=== PATIENT | female | born 1985 | race Caucasian/White ===

== ENCOUNTER 2016-05-29 07:23 | Emergency (ER) | payer OTHER ==
[~2016-05-29] VITALS: Ht 165.1 cm; Wt 60.0 kg
[~2016-05-29 07:23] MED LIST: CYCL5TAB PO
[2016-05-29 07:24] VITALS: BP 123/77; PULSE 88; RESP 20; TEMP 97.8; O2SAT 100
[2016-05-29] MEDS ORDERED: SODIUM CHLOR 0.9% 1000 ML INJ 1,000 ML IV SCH (07:51)
[2016-05-29 07:53] VITALS: O2SAT 100
[2016-05-29] MEDS ORDERED: SODIUM CHLORIDE 0.9% FLUSH 5 ML FLUSH IVF PRN (08:00)
[2016-05-29] MEDS ORDERED: HYDROmorphone HCL PF 1 MG/ML VIAL IVS ONE (08:00)
[2016-05-29] MEDS ORDERED: ONDANSETRON HCL 4 MG/2 ML VIAL IVP ONE (08:00)
--- NOTE | 2016-05-29 08:09 | PD ---
HPI Chief Complaint: Abdominal Pain Time Seen by Provider: 07:51 Travel History International Travel<30 days: No Contact w/Intl Traveler<30days: No Traveled to known affect area: No History of Present Illness HPI This a 30-year-old female is previously health, presents today with complaint of one-day history of severe abdominal pain. The patient states yesterday she thought she was experiencing some mild cramps however those subsided. Today she woke up with severe abdominal pain is unrelenting. The patient states she' s had pain in the past that was related to gas however this is much much more severe and unrelenting. There is no reported fevers, chills. There is no reported dysuria urgency or frequency. The patient denies any vaginal discharge or bleeding. She has had ovarian cysts in the past. PFSH Past Medical History Medical History: Denies Significant Hx Blood Disorders: No Anxiety: Yes Cancer: No Cardiovascular Problems: No Diminished Hearing: No Gestational Age in Weeks: 14 Genitourinary: No Immune Disorder: No Implanted Vascular Access Dvce: No Neurologic: No Psychiatric: Yes Reproductive: Yes Respiratory: No ?: Not LMP: 04/2016 Menopausal: No : 1 Para: 1 : 0 Past Surgical History Surgical History: No Previous Surgery Other Surgery: No Social History Alcohol Use: No Tobacco Use: No Substance Use: No Allergies-Medications (Allergen,Severity, Reaction): Coded Allergies: Contrast Media (Verified Allergy, Intermediate, Swelling, 05/29/16) Reported Meds & Prescriptions Reported Meds & Active Scripts Active Zofran Odt (Ondansetron Odt) 4 Mg Tab 4 Mg SL Q12HR PRN Lortab (Hydrocodone-Acetaminophen) 5-325 Mg Tab 1 Tab PO Q6H PRN Macrobid (Nitrofurantoin Monoh/Nitrofur Macro) 100 Mg Cap 100 Mg PO BID Review of Systems Except as stated in HPI: all other systems reviewed are Neg General / Constitutional: No: Fever, Chills Cardiovascular: No: Chest Pain or Discomfort, Palpitations Respiratory: No: Cough, Shortness of Breath Gastrointestinal: Positive: Nausea, Vomiting, Abdominal Pain (diffuse periumbilical and lower) Genitourinary: No: Dysuria, Discharge, Vaginal Bleeding Physical Exam Narrative GENERAL: Well-nourished, well-developed patient. SKIN: Warm and dry. HEAD: Normocephalic/atraumatic. EYES: No scleral icterus. No injection or drainage. NECK: Supple, trachea midline. CARDIOVASCULAR: Regular rate and rhythm without murmurs, gallops, or rubs. RESPIRATORY: Breath sounds equal bilaterally. No accessory muscle use. GASTROINTESTINAL: Abdomen soft, nondistended. She has subjective lower abdominal pain bilaterally. NEUROLOGICAL: Awake and alert. Cranial nerves II through XII intact. Motor grossly within normal limits. Five out of 5 muscle strength in all muscle groups. Normal speech. Data Data Last Documented VS Vital Signs Date Time Temp Pulse Resp B/P Pulse Ox O2 Delivery O2 Flow Rate FiO2 05/29/16 07:53 100 Room Air 05/29/16 07:44 16 05/29/16 07:24 97.8 88 123/77 Orders Complete Blood Count With Diff (05/29/16 07:51) Comprehensive Metabolic Panel (05/29/16 07:51) Lipase (05/29/16 07:51) Urinalysis - C+S If Indicated (05/29/16 07:51) Ct Abd/Pel W/O Iv Contrast (05/29/16 07:51) Iv Access Insert/Monitor (05/29/16 07:51) Ecg Monitoring (05/29/16 07:51) Oximetry (05/29/16 07:51) Ondansetron Inj (Zofran Inj) (05/29/16 08:00) Sodium Chlor 0.9% 1000 Ml Inj (Ns 1000 M (05/29/16 07:51) Sodium Chloride 0.9% Flush (Ns Flush) (05/29/16 08:00) Hydromorphone Pf Inj (Dilaudid Pf Inj) (05/29/16 08:00) Ed Urine Pregnancytest Poc (05/29/16 07:51) Oral Contrast - Adult (05/29/16 08:01) Diatrizoate Liq ( Gastroview Liq) (05/29/16 08:22) Morphine Inj (Morphine Inj) (05/29/16 09:15) Labs Laboratory Tests Test 05/29/16 08:05 White Blood Count 11.2 TH/MM3 Red Blood Count 4.76 MIL/MM3 Hemoglobin 13.3 GM/DL Hematocrit 39.9 % Mean Corpuscular Volume 83.9 FL Mean Corpuscular Hemoglobin 27.9 PG Mean Corpuscular Hemoglobin 33.2 % Concent Red Cell Distribution Width 13.8 % Platelet Count 146 TH/MM3 Mean Platelet Volume 9.4 FL Neutrophils (%) (Auto) 84.4 % Lymphocytes (%) (Auto) 9.3 % Monocytes (%) (Auto) 5.9 % Eosinophils (%) (Auto) 0.3 % Basophils (%) (Auto) 0.1 % Neutrophils # (Auto) 9.4 TH/MM3 Lymphocytes # (Auto) 1.0 TH/MM3 Monocytes # (Auto) 0.7 TH/MM3 Eosinophils # (Auto) 0.0 TH/MM3 Basophils # (Auto) 0.0 TH/MM3 CBC Comment DIFF FINAL Differential Comment Urine Color YELLOW Urine Turbidity HAZY Urine pH 5.5 Urine Specific [place] 1.021 Urine Protein NEG mg/dL Urine Glucose (UA) NEG mg/dL Urine Ketones NEG mg/dL Urine Occult Blood SMALL Urine Nitrite NEG Urine Bilirubin NEG Urine Urobilinogen LESS THAN 2.0 MG/DL Urine Leukocyte Esterase LARGE Urine RBC 3 /hpf Urine WBC 8 /hpf Urine Squamous Epithelial 3 /hpf Cells Urine Bacteria RARE /hpf Urine Hyaline Casts 1 /lpf Urine Mucus FEW /lpf Microscopic Urinalysis Comment CULT NOT INDICATED Sodium Level 141 MEQ/L Potassium Level 3.9 MEQ/L Chloride Level 108 MEQ/L Carbon Dioxide Level 25.4 MEQ/L Anion Gap 8 MEQ/L Blood Urea Nitrogen 12 MG/DL Creatinine 0.70 MG/DL Estimat Glomerular Filtration 99 ML/MIN Rate Random Glucose 92 MG/DL Calcium Level 8.7 MG/DL Total Bilirubin 0.4 MG/DL Aspartate Amino Transf 11 U/L (AST/SGOT) Alanine Aminotransferase 14 U/L (ALT/SGPT) Alkaline Phosphatase 44 U/L Total Protein 7.1 GM/DL Albumin 3.8 GM/DL Lipase 114 U/L [facility] Medical Decision Making Medical Screen Exam Complete: Yes Emergency Medical Condition: Yes Differential Diagnosis Appendicitis versus diverticulitis versus ruptured ovarian cyst Narrative Course 30-year-old female presents with severe abdominal pain. The patient has a history of previous gas pains however this is much more severe. Patient also has a history of ovarian cyst. She states it's more diffuse on her bilateral lower quadrants. On examination she has no rebound or guarding. CT scan of the and pelvis with oral contrast showed scant amount of free fluid in the pelvis. This could be physiologic however it could be outside sales representative of a ruptured cyst. I discussed findings with the patient and informed her that she has the findings that I think possibly could be secondary to a ruptured cyst. She will be given 2 doses of IV pain medication is much more comfortable. She is instructed to rest and have a bland diet and advance as tolerated. She is instructed return if she develops any worsening pain Diagnosis Primary Impression: Abdominal pain Additional Impression: possible ruptured ovarian cyst. Scripts Ondansetron Odt (Zofran Odt)4 Mg Tab4 Mg SL Q12HR PRN (Nausea/Vomiting) #20 TAB Ref 0 Prov:Pierre Telles MD 05/29/16 Hydrocodone-Acetaminophen (Lortab)5-325 Mg Tab1 Tab PO Q6H PRN (PAIN) #12 TAB Ref 0 Prov:Pierre Telles MD 05/29/16 Nitrofurantoin Monohydrate Macrocrystals (Macrobid)100 Mg [id number] Mg PO BID #6 CAP Ref 0 Prov:Pierre Telles MD 05/29/16 Pierre Telles MD May 29, 2016 08:09
[2016-05-29] MEDS ORDERED: DIATRIZOATE MEGLUM/DIATRIZOATE SOD 9 ML CUP ONE (08:22)
[2016-05-29 08:25] LABS: AUTOMATED NEUTROPHIL # 9.4 TH/MM3 (1.8-7.7); BASOPHIL % 0.1 % (0.0-2.0); EOSINOPHIL % 0.3 % (0.0-4.0); HEMATOCRIT 39.9 % (35.0-46.0); HEMO FLAGS DIFF FINAL; LYMPH % 9.3 % (9.0-44.0); MEAN CELL VOLUME 83.9 FL (80.0-100.0); MEAN CORPUSCULAR HEMOGLOBIN 27.9 PG (27.0-34.0); MEAN CORPUSCULAR HGB CONC 33.2 % (32.0-36.0); MONO % 5.9 % (0.0-8.0); NEUT % 84.4 % (16.0-70.0); PLATELET COUNT 146 TH/MM3 (150-450); RED BLOOD COUNT 4.76 MIL/MM3 (4.00-5.30); RED CELL DISTRIBUTION WIDTH 13.8 % (11.6-17.2); WHITE BLOOD COUNT 11.2 TH/MM3 (4.0-11.0)
[2016-05-29 08:39] LABS: BACTERIA, URINE RARE /hpf; BLOOD, URINE SMALL (NEG); COMMENT (UR) CULT NOT INDICATED; CULTURE IF INDICATED CULT NOT INDICATED; GLUCOSE,URINE NEG (NEG); HYALINE CAST, URINE 1 /lpf (RARE); KETONE, URINE NEG (NEG); MUCUS URINE FEW /lpf (OCC); NITRITE,URINE NEG (NEG); PH, URINE 5.5 (5.0-8.5); SQUAMOUS EPITHELIAL CELL URINE 3 /hpf (0-5); URINE COLOR YELLOW (YELLW/STRAW)
[2016-05-29 08:45] LABS: ALT (GPT) 14 U/L (10-53); ANION GAP 8 MEQ/L (5-15); AST (GOT) 11 U/L (15-37); BICARBONATE 25.4 MEQ/L (21.0-32.0); BLOOD UREA NITROGEN 12 MG/DL (7-18); CHLORIDE 108 MEQ/L (98-107); GLOMERULAR FILTRATION RATE 99 ML/MIN (>89); POTASSIUM 3.9 MEQ/L (3.5-5.1); SODIUM (NA) 141 MEQ/L (136-145)
[2016-05-29 08:47] LABS: ALKALINE PHOSPHATASE 44 U/L (45-117); TOTAL BILIRUBIN ADULT 0.4 MG/DL (0.2-1.0)
[2016-05-29] MEDS ORDERED: MORPHINE SULFATE 4 MG/ML INJ IV PUSH ONE (09:15)
--- NOTE | 2016-05-29 11:21 | RADRPT ---
EXAM DATE/TIME: 05/29/2016 10:04 [facility] COMPARISON: No previous studies available for comparison. INDICATIONS : Lower abdominal pain. Nausea and vomiting. ORAL CONTRAST: Partial prescribed oral contrast ingested. RADIATION DOSE: 9.96 CTDIvol (mGy) MEDICAL HISTORY : Ovarian cysts. SURGICAL HISTORY : None. ENCOUNTER: Initial ACUITY: 1 day PAIN SCALE: 5/10 LOCATION: Bilateral lower quadrant TECHNIQUE: Volumetric scanning of the abdomen and pelvis was performed. Using automated exposure control and ad justment of the mA and/or kV according to patient size, radiation dose was kept as low as reasonably achievable to obtain optimal diagnostic quality images. FINDINGS: LOWER LUNGS: The visualized lower lungs are clear. LIVER: Homogeneous density without lesion. There is no dilation of the biliary tree. No calcified gallston es. SPLEEN: Normal size without lesion. PANCREAS: Within normal limits. KIDNEYS: Normal in size and shape. There is no mass, stone, or hydronephrosis. ADRENAL GLANDS: Within normal limits. VASCULAR: There is no aortic aneurysm. BOWEL/MESENTERY: The stomach, small bowel, and colon demonstrate no acute abnormality. There is no free intraperitone al air. There is trace free fluid in the pelvis. The appendix is not visualized. Terminal ileum is no rmal. ABDOMINAL WALL: Within normal limits. RETROPERITONEUM: There is no lymphadenopathy. BLADDER: No wall thickening or mass. REPRODUCTIVE: Within normal limits. IUD is present. INGUINAL: There is no lymphadenopathy or hernia. MUSCULOSKELETAL: Hemangioma is present within the T12 vertebral body. Otherwise, no acute osseous abnormality is seen. CONCLUSION: 1. No abnormality is identified to explain the clinical symptoms. No acute finding is seen. 2. There is trace free fluid in the pelvis. This is nonspecific but may be physiologic. Luis Angel Chambers MD on May 29, 2016 at 11:12 Board Certified Radiologist. This report was verified electronically.
[2016-05-29] MEDS ORDERED: MACR100C2 PO (12:22)
[2016-05-29] MEDS ORDERED: HYDR-3533 PO (12:22)
[2016-05-29] MEDS ORDERED: ZOFR4TAB3 SL (12:22)
[2016-05-29 12:54] VITALS: BP 81/50
[2016-05-29 12:55] VITALS: BP 95/52; PULSE 72; RESP 16; O2SAT 100
== END 2016-05-29 13:02 | disposition home or self-care (01) ==
LOC: NEPC 07:23
DX: R10.9 Unspecified abdominal pain (principal)
CPT/HCPCS: 74176; 80053; 81001; 83690; 84703; 85025; 96361; 96374; 96375; 99284; J1170; J2270; J2405; J7030; Q9963

== ENCOUNTER 2016-05-30 10:57 | Observation (INO) | payer OTHER ==
[~2016-05-30] VITALS: Ht 165.1 cm; Wt 62.0 kg
[~2016-05-30 10:57] MED LIST changes: -CYCL5TAB PO; +HYDR-3533 PO; +LACTATED RINGER'S 1000 ML INJ 1,000 ML IV ONE; +MACR100C2 PO; +ONDANSETRON HCL 4 MG/2 ML VIAL IV PUSH ONE; +PHENYLEPH/NS 1000 MCG/10 ML SYR IV ONE; +PROPOFOL 200 MG/20 ML AMP IV ONE; +ZOFR4TAB3 SL; +ePHEDrine/NS 25 MG/5 ML SYR IV ONE
[2016-05-30 10:58] VITALS: BP 114/62; PULSE 122; RESP 16; TEMP 98.1; O2SAT 96
[2016-05-30] MEDS ORDERED: SODIUM CHLOR 0.9% 1000 ML INJ 1,000 ML IV SCH (11:12)
[2016-05-30] MEDS ORDERED: ONDANSETRON HCL 4 MG/2 ML VIAL IVP ONE (11:15)
[2016-05-30] MEDS ORDERED: KETOROLAC TROMETHAMINE 30 MG/ML (IVP) VIAL IVP ONE (11:15)
--- NOTE | 2016-05-30 11:20 | PD ---
HPI Chief Complaint: Abdominal Pain Time Seen by Provider: 11:15 Travel History International Travel<30 days: No Contact w/Intl Traveler<30days: No Traveled to known affect area: No History of Present Illness HPI 30-year-old female presents the emergency department with ongoing and worsening right lower quadrant tenderness. Patient was seen yesterday and workup with CT scan of the abdomen with question urinary tract infection as well as possible ovarian cyst. Patient states her pain has worsened and localized more to the right lower quadrant with rebound tenderness today. Patient is feeling overall more feverish and weak. Patient is nauseous but denies vomiting or diarrhea. Patient denies vaginal bleeding or symptoms. Patient has no medication allergies, but is allergic to IV contrast media. PFSH Past Medical History Blood Disorders: No Anxiety: Yes Cancer: No Cardiovascular Problems: No Diminished Hearing: No Gestational Age in Weeks: 14 Genitourinary: No Immune Disorder: No Implanted Vascular Access Dvce: No Neurologic: No Psychiatric: Yes Reproductive: Yes Respiratory: No ?: Not LMP: 05/06/16 Menopausal: No : 1 Para: 1 : 0 Past Surgical History Other Surgery: No Social History Alcohol Use: No Tobacco Use: No Substance Use: No Allergies-Medications (Allergen,Severity, Reaction): Coded Allergies: Contrast Media (Verified Allergy, Intermediate, Swelling, 05/30/16) Reported Meds & Prescriptions Reported Meds & Active Scripts Active Zofran Odt (Ondansetron Odt) 4 Mg Tab 4 Mg SL Q12HR PRN Lortab (Hydrocodone-Acetaminophen) 5-325 Mg Tab 1 Tab PO Q6H PRN Macrobid (Nitrofurantoin Monoh/Nitrofur Macro) 100 Mg Cap 100 Mg PO BID Review of Systems Except as stated in HPI: all other systems reviewed are Neg General / Constitutional: Positive: Chills, No: Fever Eyes: No: Visual changes HENT: No: Headaches Cardiovascular: No: Chest Pain or Discomfort Respiratory: No: Shortness of Breath Gastrointestinal: Positive: Nausea, Vomiting, Diarrhea, Abdominal Pain (right lower quadrant) Genitourinary: No: Dysuria Musculoskeletal: No: Pain Skin: No Rash Neurologic: No: Weakness Psychiatric: No: Depression Endocrine: No: Polydipsia Hematologic/Lymphatic: No: Easy Bruising Physical Exam Narrative GENERAL: Patient appears in mild to moderate distress. SKIN: Warm and dry. Normal color. Normal turgor. HEAD: Atraumatic. Normocephalic. EYES: Pupils equal and round. No scleral icterus. No injection or drainage. ENT: No nasal bleeding or discharge. Mucous membranes pink and moist. Pharynx is clear. NECK: Trachea midline. No JVD. Supple nontender. CARDIOVASCULAR: Regular rate and rhythm. RESPIRATORY: No accessory muscle use. Clear to auscultation. Breath sounds equal bilaterally. GASTROINTESTINAL: Abdomen soft, decreased bowel sounds, nondistended. Patient has moderate sharp tenderness in the right lower quadrant with positive rebound tenderness. Hepatic and splenic margins not palpable. MUSCULOSKELETAL: Extremities without clubbing, cyanosis, or edema. No obvious deformities. NEUROLOGICAL: Awake and alert. No obvious cranial nerve deficits. Motor grossly within normal limits. Five out of 5 muscle strength in the arms and legs. Normal speech. PSYCHIATRIC: Appropriate mood and affect; insight and judgment normal. Data Data Last Documented VS Vital Signs Date Time Temp Pulse Resp B/P Pulse Ox O2 Delivery O2 Flow Rate FiO2 05/30/16 13:14 17 05/30/16 13:10 97.8 76 110/78 99 Room Air Orders Complete Blood Count With Diff (05/30/16 11:12) Comprehensive Metabolic Panel (05/30/16 11:12) Lipase (05/30/16 11:12) Lactic Acid (05/30/16 11:12) Prothrombin Time / Inr (Pt) (05/30/16 11:12) Act Partial Throm Time (Ptt) (05/30/16 11:12) Urinalysis - C+S If Indicated (05/30/16 11:12) Ct Abd/Pel W/O Iv Contrast (05/30/16 11:12) Iv Access Insert/Monitor (05/30/16 11:12) Ecg Monitoring (05/30/16 11:12) Oximetry (05/30/16 11:12) Ondansetron Inj (Zofran Inj) (05/30/16 11:15) Sodium Chlor 0.9% 1000 Ml Inj (Ns 1000 M (05/30/16 11:12) Sodium Chloride 0.9% Flush (Ns Flush) (05/30/16 11:15) Ketorolac Inj (Toradol Inj) (05/30/16 11:15) Ed Urine Pregnancytest Poc (05/30/16 11:12) Oral Contrast - Adult (05/30/16 11:21) Diatrizoate Liq ( Gastroview Liq) (05/30/16 11:38) Sodium Chlor 0.9% 1000 Ml Inj (Ns 1000 M (05/30/16 13:00) Morphine Inj (Morphine Inj) (05/30/16 13:00) Admit Order (Ed Use Only) (05/30/16 14:48) Labs Laboratory Tests Test 05/30/16 11:31 White Blood Count 11.9 TH/MM3 Red Blood Count 4.84 MIL/MM3 Hemoglobin 13.3 GM/DL Hematocrit 41.0 % Mean Corpuscular Volume 84.6 FL Mean Corpuscular Hemoglobin 27.6 PG Mean Corpuscular Hemoglobin 32.6 % Concent Red Cell Distribution Width 13.3 % Platelet Count 149 TH/MM3 Mean Platelet Volume 9.2 FL Neutrophils (%) (Auto) 85.4 % Lymphocytes (%) (Auto) 8.3 % Monocytes (%) (Auto) 5.9 % Eosinophils (%) (Auto) 0.1 % Basophils (%) (Auto) 0.3 % Neutrophils # (Auto) 10.2 TH/MM3 Lymphocytes # (Auto) 1.0 TH/MM3 Monocytes # (Auto) 0.7 TH/MM3 Eosinophils # (Auto) 0.0 TH/MM3 Basophils # (Auto) 0.0 TH/MM3 CBC Comment DIFF FINAL Differential Comment Prothrombin Time 11.9 SEC Prothromb Time International 1.1 RATIO Ratio Activated Partial 28.0 SEC Thromboplast Time Urine Color YELLOW Urine Turbidity CLEAR Urine pH 6.5 Urine Specific [place] 1.019 Urine Protein TRACE mg/dL Urine Glucose (UA) NEG mg/dL Urine Ketones 10 mg/dL Urine Occult Blood NEG Urine Nitrite NEG Urine Bilirubin NEG Urine Urobilinogen 2.0 MG/DL Urine Leukocyte Esterase SMALL Urine RBC LESS THAN 1 /hpf Urine WBC 2 /hpf Urine Squamous Epithelial 3 /hpf Cells Urine Bacteria OCC /hpf Urine Mucus MOD /lpf Microscopic Urinalysis Comment CULT NOT INDICATED Sodium Level 138 MEQ/L Potassium Level 3.9 MEQ/L Chloride Level 103 MEQ/L Carbon Dioxide Level 26.7 MEQ/L Anion Gap 8 MEQ/L Blood Urea Nitrogen 6 MG/DL Creatinine 0.79 MG/DL Estimat Glomerular Filtration 86 ML/MIN Rate Random Glucose 116 MG/DL Lactic Acid Level 1.8 mmol/L Calcium Level 9.0 MG/DL Total Bilirubin 1.1 MG/DL Aspartate Amino Transf 7 U/L (AST/SGOT) Alanine Aminotransferase 13 U/L (ALT/SGPT) Alkaline Phosphatase 51 U/L Total Protein 7.9 GM/DL Albumin 3.9 GM/DL Lipase 120 U/L MDM Medical Decision Making Medical Screen Exam Complete: Yes Emergency Medical Condition: Yes Differential Diagnosis Right lower quadrant tenderness. Ovarian cyst. Appendicitis. Renal colic. Diverticulitis. Ectopic . Narrative Course Patient is felt to be medically stable at time of exam. Labs ordered including CBC, CMP, urinalysis, urine , serum hCG. IV access is obtained patient is given 4 mg Zofran IV as well as 30 mg Toradol IV. Patient is given 1000 mL's normal saline bolus IV. Patient is currently awaiting a medical bed placement. Practitioner in the medical. We will determine final patient disposition. Condition: Stable Matti Fallon May 30, 2016 11:20
[2016-05-30] MEDS ORDERED: DIATRIZOATE MEGLUM/DIATRIZOATE SOD 9 ML CUP ONE (11:38)
[2016-05-30 11:47] LABS: AUTOMATED NEUTROPHIL # 10.2 TH/MM3 (1.8-7.7); BASOPHIL % 0.3 % (0.0-2.0); EOSINOPHIL % 0.1 % (0.0-4.0); HEMO FLAGS DIFF FINAL; LYMPH % 8.3 % (9.0-44.0); MEAN CELL VOLUME 84.6 FL (80.0-100.0); MEAN CORPUSCULAR HEMOGLOBIN 27.6 PG (27.0-34.0); MEAN CORPUSCULAR HGB CONC 32.6 % (32.0-36.0); MONO % 5.9 % (0.0-8.0); NEUT % 85.4 % (16.0-70.0); PLATELET COUNT 149 TH/MM3 (150-450); RED BLOOD COUNT 4.84 MIL/MM3 (4.00-5.30); RED CELL DISTRIBUTION WIDTH 13.3 % (11.6-17.2); WHITE BLOOD COUNT 11.9 TH/MM3 (4.0-11.0)
[2016-05-30 11:56] LABS: INTERNATIONAL NORMALIZED RATIO 1.1 RATIO; PROTHROMBIN TIME - PATIENT 11.9 SEC (9.8-11.6)
[2016-05-30 11:57] LABS: BACTERIA, URINE OCC /hpf; BLOOD, URINE NEG (NEG); COMMENT (UR) CULT NOT INDICATED; CULTURE IF INDICATED CULT NOT INDICATED; GLUCOSE,URINE NEG (NEG); KETONE, URINE 10 mg/dL (NEG); MUCUS URINE MOD /lpf (OCC); NITRITE,URINE NEG (NEG); PH, URINE 6.5 (5.0-8.5); SQUAMOUS EPITHELIAL CELL URINE 3 /hpf (0-5); URINE COLOR YELLOW (YELLW/STRAW)
[2016-05-30 12:06] LABS: ALT (GPT) 13 U/L (10-53); ANION GAP 8 MEQ/L (5-15); BICARBONATE 26.7 MEQ/L (21.0-32.0); BLOOD UREA NITROGEN 6 MG/DL (7-18); CHLORIDE 103 MEQ/L (98-107); GLOMERULAR FILTRATION RATE 86 ML/MIN (>89); POTASSIUM 3.9 MEQ/L (3.5-5.1); SODIUM (NA) 138 MEQ/L (136-145)
[2016-05-30 12:10] LABS: ALKALINE PHOSPHATASE 51 U/L (45-117); AST (GOT) 7 U/L (15-37); TOTAL BILIRUBIN ADULT 1.1 MG/DL (0.2-1.0)
[2016-05-30] MEDS: SODIUM CHLORIDE 0.9% FLUSH 5 ML FLUSH IVF PRN ×2 (12:45→14:05)
--- NOTE | 2016-05-30 12:50 | PD ---
Physical Exam Date Seen by Provider: May 30, 2016 Narrative RLQ pain. Data Data Last Documented VS Vital Signs Date Time Temp Pulse Resp B/P Pulse Ox O2 Delivery O2 Flow Rate FiO2 05/30/16 13:14 17 05/30/16 13:10 97.8 76 110/78 99 Room Air Orders Complete Blood Count With Diff (05/30/16 11:12) Comprehensive Metabolic Panel (05/30/16 11:12) Lipase (05/30/16 11:12) Lactic Acid (05/30/16 11:12) Prothrombin Time / Inr (Pt) (05/30/16 11:12) Act Partial Throm Time (Ptt) (05/30/16 11:12) Urinalysis - C+S If Indicated (05/30/16 11:12) Ct Abd/Pel W/O Iv Contrast (05/30/16 11:12) Iv Access Insert/Monitor (05/30/16 11:12) Ecg Monitoring (05/30/16 11:12) Oximetry (05/30/16 11:12) Ondansetron Inj (Zofran Inj) (05/30/16 11:15) Sodium Chlor 0.9% 1000 Ml Inj (Ns 1000 M (05/30/16 11:12) Sodium Chloride 0.9% Flush (Ns Flush) (05/30/16 11:15) Ketorolac Inj (Toradol Inj) (05/30/16 11:15) Ed Urine Pregnancytest Poc (05/30/16 11:12) Oral Contrast - Adult (05/30/16 11:21) Diatrizoate Liq ( Gastroview Liq) (05/30/16 11:38) Sodium Chlor 0.9% 1000 Ml Inj (Ns 1000 M (05/30/16 13:00) Morphine Inj (Morphine Inj) (05/30/16 13:00) Labs Laboratory Tests Test 05/30/16 11:31 White Blood Count 11.9 TH/MM3 Red Blood Count 4.84 MIL/MM3 Hemoglobin 13.3 GM/DL Hematocrit 41.0 % Mean Corpuscular Volume 84.6 FL Mean Corpuscular Hemoglobin 27.6 PG Mean Corpuscular Hemoglobin 32.6 % Concent Red Cell Distribution Width 13.3 % Platelet Count 149 TH/MM3 Mean Platelet Volume 9.2 FL Neutrophils (%) (Auto) 85.4 % Lymphocytes (%) (Auto) 8.3 % Monocytes (%) (Auto) 5.9 % Eosinophils (%) (Auto) 0.1 % Basophils (%) (Auto) 0.3 % Neutrophils # (Auto) 10.2 TH/MM3 Lymphocytes # (Auto) 1.0 TH/MM3 Monocytes # (Auto) 0.7 TH/MM3 Eosinophils # (Auto) 0.0 TH/MM3 Basophils # (Auto) 0.0 TH/MM3 CBC Comment DIFF FINAL Differential Comment Prothrombin Time 11.9 SEC Prothromb Time International 1.1 RATIO Ratio Activated Partial 28.0 SEC Thromboplast Time Urine Color YELLOW Urine Turbidity CLEAR Urine pH 6.5 Urine Specific [place] 1.019 Urine Protein TRACE mg/dL Urine Glucose (UA) NEG mg/dL Urine Ketones 10 mg/dL Urine Occult Blood NEG Urine Nitrite NEG Urine Bilirubin NEG Urine Urobilinogen 2.0 MG/DL Urine Leukocyte Esterase SMALL Urine RBC LESS THAN 1 /hpf Urine WBC 2 /hpf Urine Squamous Epithelial 3 /hpf Cells Urine Bacteria OCC /hpf Urine Mucus MOD /lpf Microscopic Urinalysis Comment CULT NOT INDICATED Sodium Level 138 MEQ/L Potassium Level 3.9 MEQ/L Chloride Level 103 MEQ/L Carbon Dioxide Level 26.7 MEQ/L Anion Gap 8 MEQ/L Blood Urea Nitrogen 6 MG/DL Creatinine 0.79 MG/DL Estimat Glomerular Filtration 86 ML/MIN Rate Random Glucose 116 MG/DL Lactic Acid Level 1.8 mmol/L Calcium Level 9.0 MG/DL Total Bilirubin 1.1 MG/DL Aspartate Amino Transf 7 U/L (AST/SGOT) Alanine Aminotransferase 13 U/L (ALT/SGPT) Alkaline Phosphatase 51 U/L Total Protein 7.9 GM/DL Albumin 3.9 GM/DL Lipase 120 U/L MDM Supervised Visit with SANTIAGO: Yes Narrative Course I, Dr. Lema, have reviewed the advance practice practitioner's documentation and am in agreement, met with the patient face to face, made the diagnosis, and the medical decision making was done by me. *My assessment and Findings: Patient is point tender in the right lower quadrant. CBC & BMP Diagram 05/30/16 11:31 CT CONCLUSION: The above findings are suspicious for acute appendicitis. There are inflammatory changes in the right lower quadrant which are not appreciated on yesterday's examination. Additionally, a structure that may represent the appendix in the right lower quadrant is dilated. There is a stable small volume of free fluid in the pelvis. Diagnosis Primary Impression: Abdominal pain Qualified Code: R10.31 - Right lower quadrant abdominal pain Additional Impression: Appendicitis Qualified Code: K35.3 - Acute appendicitis with localized peritonitis Admitting Information Admitting Physician Requests: Admit Condition: Stable Valerie Lema MD May 30, 2016 12:50
[2016-05-30] MEDS ORDERED: MORPHINE SULFATE 4 MG/ML INJ IV PUSH ONE (13:00)
[2016-05-30] MEDS ORDERED: SODIUM CHLOR 0.9% 1000 ML INJ 1,000 ML IV ONE (13:00)
[2016-05-30 13:10] VITALS: BP 110/78; PULSE 76; RESP 17; TEMP 97.8; O2SAT 99
--- NOTE | 2016-05-30 14:04 | RADRPT ---
EXAM DATE/TIME: 05/30/2016 12:58 [facility] COMPARISON: CT ABDOMEN & PELVIS W/O CONTRAST, May 29, 2016, 10:04. INDICATIONS : Right lower quadrant pain. Nausea and vomiting. ORAL CONTRAST: Prescribed oral contrast ingested. RADIATION DOSE: 5.23 CTDIvol (mGy) MEDICAL HISTORY : Hx of ovarian cysts. SURGICAL HISTORY : None. ENCOUNTER: Initial ACUITY: 3 days PAIN SCALE: 8/10 LOCATION: Right lower quadrant TECHNIQUE: Volumetric scanning of the abdomen and pelvis was performed. Using automated exposure control and ad justment of the mA and/or kV according to patient size, radiation dose was kept as low as reasonably achievable to obtain optimal diagnostic quality images. FINDINGS: LOWER LUNGS: The visualized lower lungs are clear. LIVER: Homogeneous density without lesion. There is no dilation of the biliary tree. No calcified gallston es. SPLEEN: Normal size without lesion. PANCREAS: Within normal limits. KIDNEYS: Normal in size and shape. There is no mass, stone, or hydronephrosis. ADRENAL GLANDS: Within normal limits. VASCULAR: There is no aortic aneurysm. BOWEL/MESENTERY: The stomach and proximal small bowel demonstrate no abnormality. There are subtle inflammatory change s appreciated in the right lower quadrant. The appendix is not definitively seen but there is a tubul ar structure in the right lower quadrant measuring 11 mm. If this represents the appendix it is dilat ed. It is challenging to characterize this area given the lack of oral and intravenous contrast in th is area. There is stable small volume of free fluid in the posterior cul-de-sac. No free air is prese nt. ABDOMINAL WALL: Within normal limits. RETROPERITONEUM: There is no lymphadenopathy. BLADDER: No wall thickening or mass. REPRODUCTIVE: IUD is present. INGUINAL: There is no lymphadenopathy or hernia. MUSCULOSKELETAL: No acute osseous abnormality is visualized. CONCLUSION: The above findings are suspicious for acute appendicitis. There are inflammatory changes in the right lower quadrant which are not appreciated on yesterday's examination. Additionally, a structure that may represent the appendix in the right lower quadrant is dilated. There is a stable small volume of free fluid in the pelvis. These findings were discussed with Dr. Lema. Luis Angel Chambers MD on May 30, 2016 at 13:55 Board Certified Radiologist. This report was verified electronically.
[2016-05-30 15:53] VITALS: BP 98/68; PULSE 77; RESP 16; TEMP 97.8; O2SAT 100
[2016-05-30 17:46] VITALS: BP 97/61; PULSE 68; RESP 16; O2SAT 99
[2016-05-30] MEDS ORDERED: BUPIVACAINE/EPINEPHRINE 0.25% 50 ML VIAL ONE (18:31)
[2016-05-30] MEDS ORDERED: LACTATED RINGER'S 1000 ML INJ 1,000 ML IV SCH (18:45)
[2016-05-30 19:18] VITALS: BP 119/58; RESP 18; TEMP 98.7; O2SAT 97
[2016-05-30] MEDS: HYDROmorphone HCL PF 1 MG/ML VIAL IV PUSH PRN ×2 (19:27→22:58)
[2016-05-30] MEDS: ONDANSETRON HCL 4 MG/2 ML VIAL IV PUSH PRN (19:45)
[2016-05-30] MEDS ORDERED: PIPERACIL-TAZO 3.375 GM PREMIX 50 ML IV ONE (20:00)
--- NOTE | 2016-05-30 23:19 | HHI.HP ---
HPI Service General Surgery Primary Care Physician Caitie Hebert MD Admission Diagnosis appendicitis Chief Complaint: Abdominal pain History of Present Illness Mrs. Allison is a 30-year-old female who presents with 3 days of abdominal pain. Initially, the pain was diffuse throughout the lower abdomen and she thought that it was gas pain. She has been unable to eat for the last 2 days. The pain has worsened and is now localized to the right lower quadrant. She complains of nausea. She has had a painful ovarian cyst when she was a teenager but that was much shorter than this she has not had it since. She is due to have her menstrual period soon. She denies vaginal discharge. She has an IUD in place. The patient was seen in the emergency department yesterday for the abdominal pain and had a CT scan performed which had no positive findings. She was told she could have a mild UTI. Today she has a white blood count of 12,[address] scan concerning for acute appendicitis. Review of Systems Constitutional: COMPLAINS OF: Change in appetite, DENIES: Weight loss Eyes: DENIES: Eye inflammation, Eye pain Respiratory: DENIES: Wheezing, Shortness of breath Cardiovascular: DENIES: Chest pain, Palpitations Gastrointestinal: COMPLAINS OF: Abdominal pain, Nausea Genitourinary: DENIES: Urinary incontinence, Hematuria, Vaginal discharge Integumentary: DENIES: Pruritus, Rash Neurologic: DENIES: Localized weakness, Paresthesias Past Family Social History Past Medical History None Past Surgical History None Reported Medications Reported Meds & Active Scripts Active Zofran Odt (Ondansetron Odt) 4 Mg Tab 4 Mg SL Q12HR PRN Lortab (Hydrocodone-Acetaminophen) 5-325 Mg Tab 1 Tab PO Q6H PRN Macrobid (Nitrofurantoin Monoh/Nitrofur Macro) 100 Mg Cap 100 Mg PO BID Allergies: Coded Allergies: Contrast Media (Verified Allergy, Intermediate, Swelling, 05/30/16) Active Ordered Medications Current Medications Medications (Trade) Dose Ordered Sig/Dominik Route Start Time Stop Time Status Last Admin (NS Flush) 2 ml UNSCH PRN IVF 05/30/16 11:15 05/30/16 14:05 Hydromorphone HCl 1 mg 1 mg Q2H PRN IV PUSH 05/30/16 18:45 05/30/16 22:58 (Lr 1000 ml Inj) 1,000 ml @ 125 mls/hr Q8H IV 05/30/16 18:45 05/30/16 21:05 (Zofran Inj) 4 mg Q4H PRN IV PUSH 05/30/16 19:45 05/30/16 19:45 Family History Noncontributory Social History The patient works as a nurse here at [employer]. No alcohol tobacco or drug use. Physical Exam Vital Signs Vital Signs Date Time Temp Pulse Resp B/P Pulse Ox O2 Delivery O2 Flow Rate FiO2 05/30/16 20:01 16 05/30/16 19:18 98.7 18 119/58 97 05/30/16 17:46 68 16 97/61 99 Room Air 05/30/16 15:53 97.8 77 16 98/68 100 Room Air 05/30/16 13:14 17 05/30/16 13:10 97.8 76 17 110/78 99 Room Air 05/30/16 12:41 16 05/30/16 10:58 98.1 122 16 114/62 96 Physical Exam GENERAL: Awake and alert. No acute distress. Cooperative. HEAD: Normocephalic. Atraumatic. CHEST: Lungs clear to auscultation bilaterally with no wheezing or rhonchi. No respiratory distress. CARDIOVASCULAR: Regular rate and rhythm. ABDOMEN: No previous surgical incisions. Positive Rovsing's sign. Moderate to severe tenderness to palpation right lower quadrant. EXTREMITIES: No cyanosis or edema. SKIN: Warm, dry, nonjaundiced. Laboratory Laboratory Tests Test 05/30/16 11:31 White Blood Count 11.9 Red Blood Count 4.84 Hemoglobin 13.3 Hematocrit 41.0 Mean Corpuscular Volume 84.6 Mean Corpuscular Hemoglobin 27.6 Mean Corpuscular Hemoglobin 32.6 Concent Red Cell Distribution Width 13.3 Platelet Count 149 Mean Platelet Volume 9.2 Neutrophils (%) (Auto) 85.4 Lymphocytes (%) (Auto) 8.3 Monocytes (%) (Auto) 5.9 Eosinophils (%) (Auto) 0.1 Basophils (%) (Auto) 0.3 Neutrophils # (Auto) 10.2 Lymphocytes # (Auto) 1.0 Monocytes # (Auto) 0.7 Eosinophils # (Auto) 0.0 Basophils # (Auto) 0.0 CBC Comment DIFF FINAL Differential Comment Prothrombin Time 11.9 Prothromb Time International 1.1 Ratio Activated Partial 28.0 Thromboplast Time Urine Color YELLOW Urine Turbidity CLEAR Urine pH 6.5 Urine Specific [place] 1.019 Urine Protein TRACE Urine Glucose (UA) NEG Urine Ketones 10 Urine Occult Blood NEG Urine Nitrite NEG Urine Bilirubin NEG Urine Urobilinogen 2.0 Urine Leukocyte Esterase SMALL Urine RBC LESS THAN 1 Urine WBC 2 Urine Squamous Epithelial 3 Cells Urine Bacteria OCC Urine Mucus MOD Microscopic Urinalysis Comment CULT NOT INDICATED Sodium Level 138 Potassium Level 3.9 Chloride Level 103 Carbon Dioxide Level 26.7 Anion Gap 8 Blood Urea Nitrogen 6 Creatinine 0.79 Estimat Glomerular Filtration 86 Rate Random Glucose 116 Lactic Acid Level 1.8 Calcium Level 9.0 Total Bilirubin 1.1 Aspartate Amino Transf 7 (AST/SGOT) Alanine Aminotransferase 13 (ALT/SGPT) Alkaline Phosphatase 51 Total Protein 7.9 Albumin 3.9 Lipase 120 Result Diagram: 05/30/16 1131 05/30/16 1131 Imaging Last Impressions Abdomen/Pelvis CT 05/30/16 1112 Signed Impressions: Service Date/Time: May 12:58 - CONCLUSION: The above findings are suspicious for acute appendicitis. There are inflammatory changes in the right lower quadrant which are not appreciated on yesterday's examination. Additionally, a structure that may represent the appendix in the right lower quadrant is dilated. There is a stable small volume of free fluid in the pelvis. These findings were discussed with Dr. Lema. Luis Angel Chambers MD Assessment and Plan Assessment and Plan 30-year-old female with an evaluation consistent with acute appendicitis. I recommend to proceed to laparoscopic appendectomy, possible open. I discussed details risks and benefits of the procedure with the patient and she desires to proceed. DerekGhanshyam durbin MD May 30, 2016 23:18
[2016-05-31 00:55] VITALS: BP 116/79; PULSE 84; RESP 18; TEMP 97.9; O2SAT 95
[2016-05-31] MEDS: HYDROmorphone HCL PF 1 MG/ML VIAL IV PUSH PRN (01:19)
[2016-05-31] MEDS: ONDANSETRON HCL 4 MG/2 ML VIAL IV PUSH PRN (01:21)
[2016-05-31] MEDS ORDERED: SUGAMMADEX SODIUM 200 MG/2 ML VIAL IV PUSH ONE ×4 (02:20→03:11)
[2016-05-31] MEDS ORDERED: ACETAMINOPHEN 1000 MG/100 ML VIAL IV ONE (02:20)
[2016-05-31] MEDS ORDERED: PIPERACILLIN-TAZOBACTAM INJ 3.375 GM VIAL XX ONE (03:25)
[2016-05-31] MEDS ORDERED: PIPERACIL-TAZO 3.375 GM PREMIX 50 ML IV SCH (03:30)
[2016-05-31] MEDS ORDERED: OXYC1TAB63 PO (03:41)
[2016-05-31] MEDS ORDERED: SODIUM CHLORIDE 0.9% FLUSH 5 ML FLUSH IVF PRN (03:45)
[2016-05-31] MEDS ORDERED: Post-op Orders (for Pharmacy) MISC XX ONE (03:45)
[2016-05-31] MEDS ORDERED: oxyCODONE/ACETAMINOPHEN 5 MG/325 MG TAB PO PRN (03:45)
[2016-05-31] MEDS ORDERED: oxyCODONE/ACETAMINOPHEN 10 MG/325 MG TAB PO PRN (03:45)
[2016-05-31] MEDS ORDERED: NALOXONE HCL 0.4 MG/ML AMP IV PRN (03:45)
[2016-05-31] MEDS: ONDANSETRON HCL 4 MG/2 ML VIAL IV PRN ×2 (04:00→08:50)
[2016-05-31] MEDS ORDERED: fentaNYL CITRATE 250 MCG/5 ML AMP ONE (04:03)
[2016-05-31] MEDS ORDERED: MORPHINE SULFATE 4 MG/ML INJ ONE (04:13)
[2016-05-31] MEDS: LACTATED RINGER'S 1000 ML INJ 1,000 ML IV SCH ×2 (04:15→08:48)
[2016-05-31] MEDS ORDERED: DO NOT ADM ANY ANTICOAGULANT DRUGS XX PRN (04:15)
[2016-05-31 05:34] VITALS: BP 98/56; PULSE 91; RESP 18; TEMP 97.9; O2SAT 97
[2016-05-31] MEDS: metroNIDAZOLE 500 MG INJ 100 ML IV SCH ×2 (05:53→12:03)
[2016-05-31] MEDS: MORPHINE SULFATE 4 MG/ML INJ IV PRN ×3 (06:51→14:09)
[2016-05-31 07:53] VITALS: BP 90/52; PULSE 96; RESP 19; TEMP 98.3; O2SAT 94
[2016-05-31] MEDS: diphenhydrAMINE HCL 50 MG/ML VIAL IV PRN ×2 (08:50→14:08)
[2016-05-31] MEDS ORDERED: SODIUM CHLORIDE 0.9% FLUSH 5 ML FLUSH IVF SCH (09:00)
[2016-05-31 12:07] VITALS: BP 105/59; PULSE 93; RESP 20; TEMP 98.5; O2SAT 99
--- NOTE | 2016-05-31 15:52 | HHI.PR ---
Subjective Subjective Notes Tolerating liquids. Main complaints is itching from antibiotics. Pain controlled. Had nausea this morning but it improved. Objective Vitals/I&O Vital Signs Date Time Temp Pulse Resp B/P Pulse Ox O2 Delivery O2 Flow Rate FiO2 05/31/16 12:07 98.5 93 20 105/59 99 05/31/16 04:15 Nasal Cannula 3 Radiology Last Impressions Abdomen/Pelvis CT 05/30/16 1112 Signed Impressions: Service Date/Time: May 12:58 - CONCLUSION: The above findings are suspicious for acute appendicitis. There are inflammatory changes in the right lower quadrant which are not appreciated on yesterday's examination. Additionally, a structure that may represent the appendix in the right lower quadrant is dilated. There is a stable small volume of free fluid in the pelvis. These findings were discussed with Dr. Lema. Luis Angel Chambers MD Narrative Exam NAD, Awake and alert Abd: soft, post op ttp, inc c/d/i A/P Assessment and Plan 30yo F POD 1 s/p lap appy Stable post op. D/c home. Regular diet. Rx for percocet. F/u 2 weeks. Activity - avoid heavy lifting. Ghanshyam Reed MD May 31, 2016 15:52
[2016-05-31 16:00] VITALS: BP 92/54; PULSE 79; RESP 18; TEMP 98.1; O2SAT 97
--- NOTE | 2016-06-12 10:22 | MP ---
cc: JESICA JIMÉNEZ MD DATE OF SURGERY: 05/30/2016 PREOPERATIVE DIAGNOSIS Acute appendicitis. POSTOPERATIVE DIAGNOSIS Acute appendicitis. PROCEDURE Laparoscopic appendectomy. SURGEON Jesica Jiménez MD TEAM PRIMARY CARE PHYSICIAN Staff. ANESTHESIA General anesthesia. COMPLICATIONS None apparent. ESTIMATED BLOOD LOSS 5 ccs. PROCEDURE IN DETAIL The patient was taken to the operating room, placed in supine position. General endotracheal anesthesia was induced. The abdomen was prepped and draped in usual sterile fashion and a surgical time-out was performed to verify correct patient, procedure and site. After infiltration of local anesthetic a 5 mm incision was made at the inferior umbilicus and the OptiVu trocar used to directly enter the abdomen using a laparoscope. The abdomen was insufflated to 15 mmHg with CO2 gas which the patient tolerated well. She was placed in Trendelenburg position. A 5 mm port was placed in the lower midline and a 12 mm port in the suprapubic area. Attention was turned to the right lower quadrant and the appendix was identified. The appendix was inflamed and distended. It was bluntly from surrounding structures and elevated and the mesoappendix taken down using the harmonic scalpel. The base of the appendix was healthy appearing and two #1 PDS Endoloops were placed at the base of the appendix which was then transected and removed from the abdomen using an EndoCatch bag. The right lower quadrant was irrigated. The Endoloop was in place without leakage from the appendiceal stump. There was no purulent fluid present. The trocars were then removed and the abdomen allowed to desufflate. Fascia at the suprapubic incision was closed with 0 Vicryl suture. Skin was closed with 4-0 Monocryl and Dermabond. The patient tolerated the procedure well, was extubated and taken to PACU in stable condition. Jesica Jiménez MD JPAlexandr/AMRIKL /2:49 PM /10:16 AM
== END 2016-05-31 17:59 | disposition home or self-care (01) ==
LOC: NEPA 10:57 → NEDA 14:50 → INTOOBSV 14:50 → NEDA 15:22 → NEPGCP 18:53 → HPAC 05-31 02:16 → NEPGCP 05-31 05:24
PROVIDERS: ADMIT Surgery; ATTEND Surgery
DX: K35.3 Acute appendicitis with localized peritonitis (principal); F41.9 Anxiety disorder, unspecified; Z91.041 Radiographic dye allergy status
CPT/HCPCS: 00840; 44970; 74176; 80053; 81001; 83605; 83690; 84703; 85025; 85610; 85730; 88304; 94150; 96361; 96374; 96375; 99285; G0378; J0131; J0690; J1170; J1200; J1885; J2270; J2370; J2405; J2543; J3010; J7030; J7120; Q9963; 76937

== ENCOUNTER 2016-09-20 22:32 | Emergency (ER) | payer OTHER ==
[~2016-09-20] VITALS: Ht 165.1 cm; Wt 63.1 kg
[~2016-09-20 22:32] MED LIST changes: -LACTATED RINGER'S 1000 ML INJ 1,000 ML IV ONE; -ONDANSETRON HCL 4 MG/2 ML VIAL IV PUSH ONE; +OXYC1TAB63 PO; -PHENYLEPH/NS 1000 MCG/10 ML SYR IV ONE; -PROPOFOL 200 MG/20 ML AMP IV ONE; -ePHEDrine/NS 25 MG/5 ML SYR IV ONE
[2016-09-20 22:37] VITALS: BP 108/80; PULSE 88; RESP 18; TEMP 98.3; O2SAT 97
--- NOTE | 2016-09-20 23:10 | PD ---
HPI Chief Complaint: Media Marketing Manager Problem/Complaint Time Seen by Provider: 22:50 Travel History International Travel<30 days: No Contact w/Intl Traveler<30days: No Traveled to known affect area: No History of Present Illness HPI The patient is a 31-year-old female that complains of itching and burning in her vagina since last night. She self treated herself with vaginosis: Monistat and the itching was worse. She does have some dysuria and frequency. She denies any fever, nausea, vomiting or diarrhea. She states her period is late and her medical chief technician wanted a blood test. She states her home tests have been negative. PFSH Past Medical History Blood Disorders: No Anxiety: Yes Cancer: No Cardiovascular Problems: No Diminished Hearing: No Gestational Age in Weeks: 14 Genitourinary: No Immune Disorder: No Implanted Vascular Access Dvce: No Neurologic: No Psychiatric: Yes Reproductive: Yes Respiratory: No ?: Not LMP: AUG 11 2016 Menopausal: No : 1 Para: 1 : 0 Past Surgical History Other Surgery: No Social History Alcohol Use: No Tobacco Use: No Substance Use: No Allergies-Medications (Allergen,Severity, Reaction): Coded Allergies: Contrast Media (Verified Allergy, Intermediate, Swelling, 09/20/16) Reported Meds & Prescriptions Reported Meds & Active Scripts Active Review of Systems Except as stated in HPI: all other systems reviewed are Neg Physical Exam Narrative GENERAL: The patient is alert, oriented 3 in moderate apparent distress with her vaginal discomfort. Her vital signs are normal. SKIN: Focused skin assessment warm/dry. No skin rashes seen. HEAD: Atraumatic. Normocephalic. EYES: Pupils equal and round. No scleral icterus. No injection or drainage. ENT: No nasal bleeding or discharge. Mucous membranes pink and moist. NECK: Trachea midline. No JVD. CARDIOVASCULAR: Regular rate and rhythm. No murmur appreciated. RESPIRATORY: No accessory muscle use. Clear to auscultation. Breath sounds equal bilaterally. GASTROINTESTINAL: Abdomen soft, non-tender, nondistended. Hepatic and splenic margins not palpable. No guarding or rebound is present. MUSCULOSKELETAL: No obvious deformities. No clubbing. No cyanosis. No edema. NEUROLOGICAL: Awake and alert. No obvious cranial nerve deficits. Motor grossly within normal limits. Normal speech. PSYCHIATRIC: Appropriate mood and affect; insight and judgment normal. GENITOURINARY: The labia minora are swollen and tender and slightly red.. Vaginal vault without blood but there is a white Monistat appearing drainage. Cervical os was closed without drainage. The patient was too painful to do a bimanual exam and bimanual exam was deferred. There was no abdominal tenderness present. Data Data Last Documented VS Vital Signs Date Time Temp Pulse Resp B/P Pulse Ox O2 Delivery O2 Flow Rate FiO2 09/20/16 22:37 98.3 88 18 108/80 97 Orders Beta Hcg (Quant/Titer) (09/20/16 22:50) Complete Blood Count With Diff (09/20/16 22:50) Basic Metabolic Panel (Bmp) (09/20/16 22:50) Gc And Chlamydia Pcr (09/20/16 22:50) Wet Prep Profile (09/20/16 22:50) Urinalysis - C+S If Indicated (09/20/16 22:50) Lidocaine 2% Jelly (Xylocaine 2% Jelly) (09/20/16 23:30) Labs Laboratory Tests Test 09/20/16 23:00 White Blood Count 8.2 TH/MM3 Red Blood Count 4.34 MIL/MM3 Hemoglobin 12.2 GM/DL Hematocrit 36.6 % Mean Corpuscular Volume 84.2 FL Mean Corpuscular Hemoglobin 28.1 PG Mean Corpuscular Hemoglobin 33.4 % Concent Red Cell Distribution Width 12.6 % Platelet Count 174 TH/MM3 Mean Platelet Volume 8.4 FL Neutrophils (%) (Auto) 74.1 % Lymphocytes (%) (Auto) 19.7 % Monocytes (%) (Auto) 4.4 % Eosinophils (%) (Auto) 1.2 % Basophils (%) (Auto) 0.6 % Neutrophils # (Auto) 6.1 TH/MM3 Lymphocytes # (Auto) 1.6 TH/MM3 Monocytes # (Auto) 0.4 TH/MM3 Eosinophils # (Auto) 0.1 TH/MM3 Basophils # (Auto) 0.0 TH/MM3 CBC Comment DIFF FINAL Differential Comment Urine Color YELLOW Urine Turbidity SLIGHT Urine pH 6.5 Urine Specific [place] 1.026 Urine Protein NEG mg/dL Urine Glucose (UA) NEG mg/dL Urine Ketones NEG mg/dL Urine Occult Blood NEG Urine Nitrite NEG Urine Bilirubin NEG Urine Leukocyte Esterase NEG Urine RBC 0-2 /hpf Urine WBC 3-5 /hpf Urine Squamous Epithelial 0-5 /hpf Cells Urine Bacteria NONE /hpf Urine Yeast (Budding) OCC Microscopic Urinalysis Comment CULT NOT INDICATED Clue Cells (Wet Prep) NONE SEEN Vaginal Trichomonas (Wet Prep) NONE SEEN Vaginal Yeast (Wet Prep) PRESENT Sodium Level 143 MEQ/L Potassium Level 3.6 MEQ/L Chloride Level 108 MEQ/L Carbon Dioxide Level 26.8 MEQ/L Anion Gap 8 MEQ/L Blood Urea Nitrogen 13 MG/DL Creatinine 0.66 MG/DL Estimat Glomerular Filtration 105 ML/MIN Rate Random Glucose 89 MG/DL Calcium Level 8.3 MG/DL Human Chorionic Gonadotropin, LESS THAN 1 Quant MIU/ML MDM Medical Decision Making Medical Screen Exam Complete: Yes Emergency Medical Condition: Yes Medical Record Reviewed: Yes Interpretation(s) The CBC is normal. The basic metabolic profile is normal except for a calcium of 8.3. The beta-hCG is less than 1, the patient is not . The urine is normal and culture is not indicated. There are budding yeast noted in the urine however. The wet prep is negative for clue cells and trichomonas but is positive for vaginal yeast. Differential Diagnosis Allergic vaginitis, Trichomonas vaginitis, bacterial vaginosis, yEast vaginitis , , urinary tract infection Narrative Course The patient has yeast vaginitis. Diagnosis Primary Impression: Monilial vaginitis Additional Instructions: Usually one tablet is enough to knock out a yeast infection but I gave you to an case this is a recurrent phenomenon. Follow-up with your medical chief technician. Med/Other Pt SpecificInfo: Prescription(s) given Scripts Fluconazole (Diflucan)200 Mg Vqi031 Mg PO DAILY #2 TAB Ref 0 Prov:Gamaliel Schroeder MD 09/20/16 Disposition: 01 DISCHARGE HOME Condition: Stable Gamaliel Schroeder MD Sep 20, 2016 23:10
[2016-09-20 23:24] LABS: BLOOD, URINE NEG (NEG); GLUCOSE,URINE NEG (NEG); KETONE, URINE NEG (NEG); NITRITE,URINE NEG (NEG); PH, URINE 6.5 (5.0-8.5)
[2016-09-20 23:25] LABS: AUTOMATED NEUTROPHIL # 6.1 TH/MM3 (1.8-7.7); BASOPHIL % 0.6 % (0.0-2.0); EOSINOPHIL # 0.1 TH/MM3 (0-0.4); EOSINOPHIL % 1.2 % (0.0-4.0); HEMATOCRIT 36.6 % (35.0-46.0); HEMO FLAGS DIFF FINAL; LYMPH % 19.7 % (9.0-44.0); LYMPHOCYTE # 1.6 TH/MM3 (1.0-4.8); MEAN CELL VOLUME 84.2 FL (80.0-100.0); MEAN CORPUSCULAR HEMOGLOBIN 28.1 PG (27.0-34.0); MEAN CORPUSCULAR HGB CONC 33.4 % (32.0-36.0); MONO % 4.4 % (0.0-8.0); NEUT % 74.1 % (16.0-70.0); PLATELET COUNT 174 TH/MM3 (150-450); RED BLOOD COUNT 4.34 MIL/MM3 (4.00-5.30); RED CELL DISTRIBUTION WIDTH 12.6 % (11.6-17.2); WHITE BLOOD COUNT 8.2 TH/MM3 (4.0-11.0)
[2016-09-20 23:30] LABS: RBC, URINE 0-2 /hpf (0-3); SQUAMOUS EPITHELIAL CELL URINE 0-5 /hpf (0-5); URINE COLOR YELLOW (YELLW/STRAW)
[2016-09-20] MEDS ORDERED: LIDOCAINE 2% JELLY 30 ML TUBE TOPICAL ONE (23:30)
[2016-09-20 23:31] LABS: COMMENT (UR) CULT NOT INDICATED; CULTURE IF INDICATED CULT NOT INDICATED
[2016-09-20 23:32] LABS: CHLORIDE 108 MEQ/L (98-107); POTASSIUM 3.6 MEQ/L (3.5-5.1); SODIUM (NA) 143 MEQ/L (136-145)
[2016-09-20 23:35] LABS: ANION GAP 8 MEQ/L (5-15); BICARBONATE 26.8 MEQ/L (21.0-32.0); BLOOD UREA NITROGEN 13 MG/DL (7-18)
[2016-09-20 23:38] LABS: GLOMERULAR FILTRATION RATE 105 ML/MIN (>89)
[2016-09-20 23:43] LABS: BETA HCG QUANT LESS THAN 1 MIU/ML (0-5)
[2016-09-20] MEDS ORDERED: DIFL200T PO (23:59)
[2016-09-21] MEDS ORDERED: FLUCONAZOLE 200 MG TAB PO ONE
[2016-09-21 00:20] VITALS: BP 99/54
[2016-09-21 12:06] LABS: CHLAMYDIA PCR NOT DETECTED (NOT DETECT); NEISSERIA PCR NOT DETECTED (NOT DETECT)
== END 2016-09-21 00:19 | disposition home or self-care (01) ==
LOC: PHED 22:32
DX: N76.0 Acute vaginitis (principal)
CPT/HCPCS: 80048; 81001; 84702; 85025; 87210; 87491; 87591; 99284

== ENCOUNTER 2017-07-13 14:26 | Emergency (ER) | payer OTHER ==
[~2017-07-13 14:26] MED LIST changes: +DIFL200T PO; -HYDR-3533 PO; -MACR100C2 PO; -OXYC1TAB63 PO; -ZOFR4TAB3 SL
[2017-07-13] MEDS ORDERED: oxyCODONE/ACETAMINOPHEN 5 MG/325 MG TAB PO ONE (15:00)
--- NOTE | 2017-07-13 15:09 | PD ---
HPI Chief Complaint s/p fall and ankle/foot pain Date Seen: Jul 13, 2017 Time Seen: 14:57 Travel History International Travel<30 Days: No Contact w/Intl Traveler<30Days: No Known Affected Area: No History of Present Illness HPI pt. is a 31 y/o @ 36 weeks presents s/p fall. pt. states was walking and stepped in drainage ditch and twisted her ankle/foot. pt. needed assistance to get up and was not able to move her foot/ankle to walk. pt. states ankle swollen. +FM, nolf/vb, no ctxs. Weeks Gestation: 36 Para: 1 : 2 History Past Medical History Medical History: Denies Significant Hx Obstetric History Obstetric History , s/p x 1 Past Surgical History Surgical History: No Previous Surgery Family History Family History: Negative Social History Alcohol Use: No Tobacco Use: No Substance Abuse: No Allergies-Medications (Allergen,Severity, Reaction): Coded Allergies: diatrizoate meglumine (Unverified Allergy, Intermediate, Swelling, 11/06/16 ) gadobenic acid (Unverified Allergy, Intermediate, Swelling, 11/06/16) gadodiamide (Unverified Allergy, Intermediate, Swelling, 11/06/16) gadoteridol (Unverified Allergy, Intermediate, Swelling, 11/06/16) iodixanol (Unverified Allergy, Intermediate, Swelling, 11/06/16) iohexol (Unverified Allergy, Intermediate, Swelling, 11/06/16) Home Meds Active Scripts Fluconazole (Diflucan) 200 Mg Tab, 200 MG PO DAILY for Infection, #2 TAB 0 Refills Prov:Gamaliel Schroeder MD 09/20/16 Review of Systems Except as stated in HPI: all other systems reviewed are Neg Physical Exam Narrative GENERAL: Well-nourished, well-developed patient. SKIN: Warm and dry. HEAD: Normocephalic and atraumatic. EYES: No scleral icterus. No injection or drainage. ENT: No nasal drainage noted. Mucous membranes pink. Airway patent. NECK: Supple, trachea midline. No JVD. CARDIOVASCULAR: Regular rate and rhythm without murmurs, gallops, or rubs. RESPIRATORY: Breath sounds equal bilaterally. No accessory muscle use. ABDOMEN/GI: Abdomen soft, non-tender, bowel sounds present, no rebound, no guarding Gravid Uterine Contractions: irreg FHT's: Category: 1 Reactive: + Variability: mod EXTREMITIES: right foot/ankle: warm w/ edema of upper foot, decreased rom, mini plantar and dorsiflex 2/2 edema and pain, able to wiggle toes, tender in upper foot on lateral aspect. BACK: Nontender without obvious deformity. No CVA tenderness. NEUROLOGICAL: Awake and alert. Motor and sensory grossly within normal limits. Five out of 5 muscle strength in all muscle groups. Normal speech. Data Data Vital Signs Reviewed: Yes Orders Orders Oxycodone-Acetamin 5-325 Mg (Percocet (07/13/17 15:00) Foot, Complete ([id number]) (07/13/17 ) MDM Plan pt. w/ sprain/fracture of right foot. condition d/w pt. all ? answered. pt. to rest foot and referred to orthopedics. pt. given percocet 5/325 for pain prn. pt. given precautions for return. f/u as sched. Diagnosis Diagnosis: Primary Impression: Sprain of right foot Additional Impression: 36 weeks gestation of Disposition: 01 DISCHARGE HOME Stiven Boo Jr., MD Jul 13, 2017 15:09
--- NOTE | 2017-07-13 15:38 | RADRPT ---
EXAM DATE/TIME: 07/13/2017 15:11 [facility] COMPARISON: No previous studies available for comparison. INDICATIONS : Right foot pain, fell MEDICAL HISTORY : None. SURGICAL HISTORY : None. ENCOUNTER: Initial ACUITY: 1 day PAIN SCORE: 10/10 LOCATION: Right Foot FINDINGS: Three view examination of the right foot demonstrates a Lane type fracture through the base of the f ifth metatarsal with mild diastases of the fracture fragments. Osseous structures are otherwise intac t. CONCLUSION: Lane type fracture at the base of the fifth metatarsal with mild diastases of the fracture frag ments. Uche Moya MD on July 13, 2017 at 15:34 Board Certified Radiologist. This report was verified electronically.
== END 2017-07-13 17:40 | disposition home or self-care (01) ==
LOC: HOBED 14:26
DX: O26.93 Pregnancy related conditions, unspecified, third trimester (principal); S92.901A Unspecified fracture of right foot, initial encounter for closed fracture; M79.89 Other specified soft tissue disorders; W18.30XA Fall on same level, unspecified, initial encounter; Y93.01 Activity, walking, marching and hiking; Z3A.36 36 weeks gestation of pregnancy
CPT/HCPCS: 73630; 76815; 99283; E0113; L2114

== ENCOUNTER 2017-08-05 08:03 | Inpatient (IN) | payer OTHER ==
[2017-08-05] VITALS (96 sets, daily range): BP systolic 76–125; BP diastolic 30–87; PULSE 48–188; RESP 18–20; TEMP 97.6–98.3; O2SAT 99–100
[2017-08-05] MEDS ORDERED: ONDANSETRON ODT 4 MG TAB SL PRN ×2 (09:15→21:30)
[2017-08-05] MEDS ORDERED: MINERAL OIL 10 ML VIAL TOPICAL PRN (09:15)
[2017-08-05] MEDS ORDERED: NS 500 ML BOLUS IV PRN (09:15)
[2017-08-05] MEDS ORDERED: LACTATED RINGER'S 1000 ML BOLUS IV PRN (09:15)
[2017-08-05] MEDS ORDERED: CITRIC ACID-SODIUM CITRATE LIQ 30 ML UDC PO SCH (09:15)
[2017-08-05] MEDS ORDERED: LIDOCAINE HCL 1% 50 ML VIAL I-DERMAL PRN (09:15)
[2017-08-05] MEDS ORDERED: NS 1000 ML IV PRN (09:15)
[2017-08-05] MEDS ORDERED: LIDOCAINE HCL 1% 50 ML VIAL INFIL PRN (09:15)
[2017-08-05 09:22] LABS: AUTOMATED NEUTROPHIL # 6.2 TH/MM3 (1.8-7.7); BASOPHIL % 0.1 % (0.0-2.0); EOSINOPHIL % 0.3 % (0.0-4.0); HEMATOCRIT 32.5 % (35.0-46.0); HEMOGLOBIN 10.4 GM/DL (11.6-15.3); LYMPH % 13.5 % (9.0-44.0); LYMPHOCYTE # 1.1 TH/MM3 (1.0-4.8); MEAN CELL VOLUME 75.9 FL (80.0-100.0); MEAN CORPUSCULAR HEMOGLOBIN 24.3 PG (27.0-34.0); MEAN PLATELET VOLUME 8.2 FL (7.0-11.0); MONOCYTE # 0.5 TH/MM3 (0-0.9); NEUT % 79.1 % (16.0-70.0); PLATELET COUNT 183 TH/MM3 (150-450); RED BLOOD COUNT 4.29 MIL/MM3 (4.00-5.30); RED CELL DISTRIBUTION WIDTH 15.7 % (11.6-17.2); WHITE BLOOD COUNT 7.8 TH/MM3 (4.0-11.0)
[2017-08-05] MEDS ORDERED: OXYTOCIN 30 UNITS 500ML PREMIX IV ONE (09:30)
[2017-08-05] MEDS ORDERED: LACTATED RINGER'S 1000 ML IV SCH (09:30)
[2017-08-05] MEDS ORDERED: OXYTOCIN 30 UNITS/NS 500ML PREMIX IV PRN (09:30)
--- NOTE | 2017-08-05 09:42 | HHI.HP ---
HPI Chief Complaint 40 weeks elective induction Date Seen: August 05, 2017 Time Seen: 09:30 Travel History International Travel<30 Days: No Contact w/Intl Traveler<30Days: No Known Affected Area: No History of Present Illness HPI 31 yo here for induction at 40 weeks. she will have pitocin then AROM Weeks Gestation: 40 Para: 1 : 2 History Past Medical History Medical History: Denies Significant Hx Obstetric History Obstetric History forcep with 1st Past Surgical History Narrative Surgical none Family History Family History: Negative Social History Alcohol Use: No Tobacco Use: No Substance Abuse: No Allergies-Medications (Allergen,Severity, Reaction): Coded Allergies: diatrizoate meglumine (Unverified Allergy, Intermediate, Swelling, 11/06/16 ) gadobenic acid (Unverified Allergy, Intermediate, Swelling, 11/06/16) gadodiamide (Unverified Allergy, Intermediate, Swelling, 11/06/16) gadoteridol (Unverified Allergy, Intermediate, Swelling, 11/06/16) iodixanol (Unverified Allergy, Intermediate, Swelling, 11/06/16) iohexol (Unverified Allergy, Intermediate, Swelling, 11/06/16) Home Meds Active Scripts Fluconazole (Diflucan) 200 Mg Tab, 200 MG PO DAILY for Infection, #2 TAB 0 Refills Prov:Gamaliel Schroeder MD 09/20/16 Review of Systems Except as stated in HPI: all other systems reviewed are Neg Physical Exam Narrative GENERAL: Well-nourished, well-developed patient. SKIN: Warm and dry. HEAD: Normocephalic and atraumatic. EYES: No scleral icterus. No injection or drainage. ENT: No nasal drainage noted. Mucous membranes pink. Airway patent. NECK: Supple, trachea midline. No JVD. CARDIOVASCULAR: Regular rate and rhythm without murmurs, gallops, or rubs. RESPIRATORY: Breath sounds equal bilaterally. No accessory muscle use. BREASTS: Bilateral exam showed no masses , no retractions, no nipple discharge. ABDOMEN/GI: Abdomen soft, non-tender, bowel sounds present, no rebound, no guarding Gravid to 40 weeks size Fundal Height: [-] GENITOURINARY: External Genitalia: intact and normal in appearance BUS glands: [-] Cervix: [-] Dilatation: 1 Effacement: 70 Station: [-] Presentation: vtx Membranes: intact Uterine Contractions: 1 FHT's: Category: 1 Baseline: [-] Reactive: [-] Variability: [-] Decels: [-] EXTREMITIES: No cyanosis or edema. BACK: Nontender without obvious deformity. No CVA tenderness. NEUROLOGICAL: Awake and alert. Motor and sensory grossly within normal limits. Five out of 5 muscle strength in all muscle groups. Normal speech. Caprini VTE Risk Assessment Caprini VTE Risk Assessment: No/Low Risk (score <= 1) Caprini Risk Assessment Model Point Value = 1 Point Value = 2 Point Value = 3 Point Value = 5 Age 41-60 Minor surgery BMI > 25 kg/m2 Swollen legs Varicose veins or History of unexplained or recurrent spontaneous Oral contraceptives or hormone replacement Sepsis (< 1 month) Serious lung disease, including pneumonia (< 1 month) Abnormal pulmonary function Acute myocardial infarction Congestive heart failure (< 1 month) History of inflammatory bowel disease Medical patient at bed rest Age 61-74 Arthroscopic surgery Major open surgery (> 45 min) Laparoscopic surgery (> 45 min) Malignancy Confined to bed (> 72 hours) Immobilizing plaster cast Central venous access Age >= 75 History of VTE Family history of VTE Factor V Leiden Prothrombin [id number] Lupus anticoagulant Anticardiolipin antibodies Elevated serum homocysteine Heparin-induced thrombocytopenia Other congenital or acquired thrombophilia Stroke (< 1 month) Elective arthroplasty Hip, pelvis, or leg fracture Acute spinal cord injury (< 1 month) Prophylaxis Regimen Total Risk Factor Score Risk Level Prophylaxis Regimen 0-1 Low Early ambulation 2 Moderate Order ONE of the following: *Sequential Compression Device (SCD) *Heparin 5000 units SQ BID 3-4 Higher Order ONE of the following medications: *Heparin 5000 units SQ TID *Enoxaparin/Lovenox 40 mg SQ daily (WT < 150 kg, CrCl > 30 mL/min) *Enoxaparin/Lovenox 30 mg SQ daily (WT < 150 kg, CrCl > 10-29 mL/min) *Enoxaparin/Lovenox 30 mg SQ BID (WT < 150 kg, CrCl > 30 mL/min) AND/OR *Sequential Compression Device (SCD) 5 or more Highest Order ONE of the following medications: *Heparin 5000 units SQ TID (Preferred with Epidurals) *Enoxaparin/Lovenox 40 mg SQ daily (WT < 150 kg, CrCl > 30 mL/min) *Enoxaparin/Lovenox 30 mg SQ daily (WT < 150 kg, CrCl > 10-29 mL/min) *Enoxaparin/Lovenox 30 mg SQ BID (WT < 150 kg, CrCl > 30 mL/min) AND *Sequential Compression Device (SCD) Data Data Vital Signs Reviewed: Yes Orders Orders Oxytocin 30 Units-500ml Premix (Pitocin (08/05/17 09:30) Lactated Ringer's 1000 Ml Inj (Lr 1000 M (08/05/17 09:30) Lactated Ringer's 1000 Ml Inj (Lr 1000 M (08/05/17 09:15) Sodium Chlorid 0.9% 500 Ml Inj (Ns 500 M (08/05/17 09:15) Sodium Chlor 0.9% 1000 Ml Inj (Ns 1000 M (08/05/17 09:15) Lidocaine 1% Inj (50 Ml) (Xylocaine 1% I (08/05/17 09:15) Citric Acid-Sodium Citrate Liq (Bicitra (08/05/17 09:15) Fentanyl Inj (Fentanyl Inj) (08/05/17 09:15) Fentanyl Inj (Fentanyl Inj) (08/05/17 09:15) Lidocaine 1% Inj (50 Ml) (Xylocaine 1% I (08/05/17 09:15) Light Mineral Oil (Muri-Lube Oil) (08/05/17 09:15) Oxytocin 30 Units-500ml Premix (Pitocin (08/05/17 09:30) Admit To Inpatient (08/05/17 ) Code Status (08/05/17 09:06) Vital Signs (Adult) .Per protocol (08/05/17 09:06) Activity Oob Ad Zaina (08/05/17 09:06) Heart (08/05/17 09:06) Amnioinfusion (08/05/17 09:06) Urinary Catheter Management .ONCE (08/05/17 09:06) Diet Liquid (08/05/17 Breakfast) Complete Blood Count With Diff (08/05/17 09:06) Hold Clot (08/05/17 09:06) Abo/Rh Blood Type (08/05/17 09:06) Urinalysis - C+S If Indicated (08/05/17 09:06) Drug Screen, Random Urine (08/05/17 09:06) Ob/Psych Drug Screen, Urine (08/05/17 09:06) Resp Oxygen Non Rebreathe Mask (08/05/17 ) ^ Epidural / Intrathecal Infus (08/05/17 09:06) Specimen To Be Collected PRN (08/05/17 09:06) Specimen To Be Collected PRN (08/05/17 09:06) Ondansetron Odt (Zofran Odt) (08/05/17 09:15) ^ Non Stress Test (08/05/17 09:14) Response To Medication .Post New Med Administration, Reaction (08/05/17 09:14) ^ Discontinue Medication (08/05/17 09:14) Group B Strep: Negative Labs Laboratory Tests Test 08/05/17 08:40 White Blood Count 7.8 Red Blood Count 4.29 Hemoglobin 10.4 Hematocrit 32.5 Mean Corpuscular Volume 75.9 Mean Corpuscular Hemoglobin 24.3 Mean Corpuscular Hemoglobin Concent 32.0 Red Cell Distribution Width 15.7 Platelet Count 183 Mean Platelet Volume 8.2 Neutrophils (%) (Auto) 79.1 Lymphocytes (%) (Auto) 13.5 Monocytes (%) (Auto) 7.0 Eosinophils (%) (Auto) 0.3 Basophils (%) (Auto) 0.1 Neutrophils # (Auto) 6.2 Lymphocytes # (Auto) 1.1 Monocytes # (Auto) 0.5 Eosinophils # (Auto) 0.0 Basophils # (Auto) 0.0 CBC Comment DIFF FINAL Differential Comment Assessment/Plan Problem List: (1) 40 weeks gestation of ICD Codes: Z3A.40 - 40 weeks gestation of Luis Angel Eden MD August 05, 2017 09:42
[2017-08-05 10:08] LABS: AMORPHOUS SEDIMENT, URINE RARE; BACTERIA, URINE FEW /hpf; BILIRUBIN, URINE NEG (NEG); BLOOD, URINE NEG (NEG); GLUCOSE,URINE NEG (NEG); KETONE, URINE NEG (NEG); NITRITE,URINE NEG (NEG); SQUAMOUS EPITHELIAL CELL URINE 27 /hpf (0-5); URINE COLOR LIGHT-YELLOW (YELLW/STRAW); URINE LEUKOCYTE ESTERASE LARGE (NEG)
[2017-08-05] MEDS ORDERED: PREN29TA PO (10:41)
[2017-08-05] MEDS ORDERED: ONDANSETRON HCL 4 MG/2 ML VIAL ONE ×2 (12:06→20:49)
--- NOTE | 2017-08-05 13:24 | PD.LABORPN ---
Subjective Subjective doing well contractions on pitocin Objective Vital Signs Vital Signs Date Time Temp Pulse Resp B/P (MAP) Pulse Ox O2 Delivery O2 Flow Rate FiO2 08/05/17 12:56 98.2 20 08/05/17 12:55 87 08/05/17 12:50 90 08/05/17 12:45 89 08/05/17 12:40 93 08/05/17 12:35 90 08/05/17 12:30 92 08/05/17 12:25 48 08/05/17 12:15 109 08/05/17 12:10 88 08/05/17 12:05 87 08/05/17 12:00 92 08/05/17 12:00 86 108/70 (83) 08/05/17 11:35 90 08/05/17 11:30 97 08/05/17 11:30 106/62 (77) 08/05/17 11:25 87 08/05/17 11:20 86 08/05/17 11:15 89 08/05/17 11:10 97 08/05/17 11:05 97 08/05/17 11:01 100 112/74 (87) 08/05/17 11:00 91 08/05/17 11:00 99 114/80 (91) 08/05/17 10:40 92 08/05/17 10:35 83 08/05/17 10:30 96 106/73 (84) 08/05/17 10:25 92 08/05/17 10:20 85 08/05/17 10:15 95 08/05/17 10:10 108 08/05/17 10:05 99 08/05/17 10:00 93 120/66 (84) 08/05/17 09:55 98.3 93 20 08/05/17 09:50 91 08/05/17 09:45 88 08/05/17 09:40 94 08/05/17 09:35 97 08/05/17 09:30 100 116/66 (83) 08/05/17 09:30 85 08/05/17 09:25 102 08/05/17 09:15 90 08/05/17 09:10 90 08/05/17 09:05 86 08/05/17 09:03 91 125/73 (90) 08/05/17 09:00 86 Objective Pelvic Exam: Cervix: [-] Dilatation: 2 Effacement: 80 Station: [-] Presentation: vtx Membranes: AROM clear Uterine Contractions: Q2 FHT's: Category: 1 Baseline: [-] Reactive: [-] Variability: [-] Decels: [-] Weeks Gestation: 40 Gest Age Assessed Date: August 05, 2017 Gest Age Assessed Time: 09:30 Pt started active labor?: Yes Active labor start date: August 05, 2017 Active labor start time: 09:30 Medical induction of labor?: No Artificial rupture of membrane: Yes Artificial ROM date: August 05, 2017 Artifical ROM time: 13:11 Assessment/Plan Problem List: (1) 40 weeks gestation of ICD Codes: Z3A.40 - 40 weeks gestation of Luis Angel Eden MD August 05, 2017 13:24
[2017-08-05] MEDS ORDERED: fentaNYL 2MCG-BUPIV 0.125% INJ 100 ML ONE (14:52)
[2017-08-05] MEDS ORDERED: ePHEDrine/NS 25 MG/5 ML SYRINGE ONE (14:53)
[2017-08-05] MEDS ORDERED: LIDOCAINE HCL 1% PF 5 ML AMPULE ONE (14:59)
[2017-08-05] MEDS ORDERED: LIDOCAINE 1.5%/EPINEPHrine 1:200,000 PF 5 ML AMP ONE (14:59)
[2017-08-05] MEDS ORDERED: MEASLES, MUMPS, RUBELLA VACCINE 0.5 ML VIAL SQ ONE (16:00)
[2017-08-05] MEDS ORDERED: fentaNYL 2MCG-BUPIV 0.125% 100 ML EPIDURAL PRN (16:00)
[2017-08-05] MEDS ORDERED: NO SYSTEM NARCOTICS PRN (16:00)
[2017-08-05] MEDS ORDERED: ePHEDrine/NS 25 MG/5 ML SYRINGE IV PUSH PRN (16:00)
[2017-08-05] MEDS ORDERED: DO NOT ADMINISTER ANTICOAGULANTS PRN (16:00)
[2017-08-05] MEDS ORDERED: DIPHTH/TETANUS/ACEL PERTUSSIS (BOOSTER) 0.5 ML VIAL/PFS IM ONE (16:00)
[2017-08-05] MEDS ORDERED: LIDOCAINE HCL 1% PF 30 ML VIAL ONE (21:04)
[2017-08-05] MEDS ORDERED: ACETAMINOPHEN 325 MG TAB PO PRN ×2 (21:30→22:15)
--- NOTE | 2017-08-05 22:07 | PD.OB.DELI ---
Weeks gestation: 40 Gest age assessed date: August 05, 2017 Gest age assessed time: 09:30 Pt started active labor?: Yes Active labor start date: August 05, 2017 Active labor start time: 09:30 Medical induction of labor?: No Artificial rupture of membrane: Yes Artificial ROM date: August 05, 2017 Artifical ROM time: 13:11 Anesthesia: Epidural Episiotomy: None Vaginal Delivery: Normal, Spontaneous Presentation: Occiput anterior Nuchal Cord: None Delayed cord clamping (45 sec): No (failure to breath and tone was decreased) : Female, Single Delivery date: August 05, 2017 Delivery time: 21:40 One Minute : 7 Five Minute : 8 Placenta: Spontaneous delivery, Intact, 3 vessel cord Laceration: Perineal laceration, 2 deg Repair: Chromic interrupted Estimated blood loss: 300 Luis Angel Eden MD August 05, 2017 22:07
[2017-08-05] MEDS ORDERED: ZOLPIDEM TARTRATE 5 MG TAB PO PRN (22:15)
[2017-08-05] MEDS ORDERED: BENZOCAINE 20% TOPICAL SPRAY 60 ML CAN TOPICAL PRN (22:15)
[2017-08-05] MEDS ORDERED: oxyCODONE/ACETAMINOPHEN 5 MG/325 MG TAB PO PRN (22:15)
[2017-08-05] MEDS ORDERED: ALUMINUM/MAGNESIUM/SIMETH 30 ML CUP PO PRN (22:15)
[2017-08-05] MEDS ORDERED: WITCH HAZEL 50%/GLYCERIN 12.5% 40 PAD JAR TOPICAL PRN (22:15)
[2017-08-05] MEDS ORDERED: SODIUM CHLORIDE 0.9% FLUSH 10 ML FLUSH IV FLUSH PRN (22:15)
[2017-08-05] MEDS ORDERED: ONDANSETRON ODT 4 MG TAB PO PRN (22:15)
[2017-08-05] MEDS ORDERED: OXYTOCIN 30 UNITS-500ML PREMIX 500 ML IV SCH (22:15)
[2017-08-06] MEDS: IBUPROFEN 800 MG TAB PO PRN ×3 (04:59→21:06)
--- NOTE | 2017-08-06 07:23 | HHI.DCPOC ---
Discharge Care Plan Diagnosis: (1) Spontaneous vaginal delivery Report Symptoms to Your Doctor -Temperature above 100.5 degrees -Redness, of incision or excessive or foul smelling drainage -Unusual pain or calf pain -Increased vaginal bleeding -Painful or difficulty urinating -Feelings of extreme sadness or anxiety after 2 weeks Goals to Promote Your Health * To prevent worsening of your condition and complications * To maintain your health at the optimal level Directions to Meet Your Goals Take your medications as prescribed Follow your dietary instruction Follow activity as directed Ensure plenty of rest for recovery Drink fluids for hydration Keep your appointments as scheduled Take your immunizations and boosters as scheduled If your symptoms worsen call your PCP, if no PCP go to Urgent Care Center or Emergency Room Smoking is Dangerous to Your Health. Avoid second hand smoke Call the 24-hour crisis hotline for domestic abuse at Luis Angel Eden MD August 06, 2017 07:23
[2017-08-06] MEDS: oxyCODONE/ACETAMINOPHEN 5 MG/325 MG TAB PO PRN ×4 (08:36→21:06)
[2017-08-06] MEDS ORDERED: SODIUM CHLORIDE 0.9% FLUSH 10 ML FLUSH IV FLUSH SCH (09:00)
[2017-08-06] MEDS: DOCUSATE SODIUM 50 MG/SENNA 8.6 MG TAB PO PRN (13:14)
[2017-08-06 20:00] VITALS: BP 104/60; PULSE 72; RESP 18; TEMP 98.4; O2SAT 96
[2017-08-07] MEDS: oxyCODONE/ACETAMINOPHEN 5 MG/325 MG TAB PO PRN ×2 (01:30→05:15)
[2017-08-07] MEDS: DOCUSATE SODIUM 50 MG/SENNA 8.6 MG TAB PO PRN (05:14)
[2017-08-07] MEDS: IBUPROFEN 800 MG TAB PO PRN ×2 (05:14→13:29)
--- NOTE | 2017-08-07 07:44 | HHI.OB ---
Subjective Post Day: 2 Remarks doing well Objective Vitals/I&O Vital Signs Date Time Temp Pulse Resp B/P (MAP) Pulse Ox O2 Delivery O2 Flow Rate FiO2 08/06/17 20:00 72 104/60 (75) 08/06/17 20:00 98.4 18 96 Objective Remarks GENERAL: Well-nourished, well-developed patient. ABDOMEN/GI: Abdomen soft, non-tender. Fundus: Firm, non-tender at umbilicus. GENITOURINARY: Light to moderate bleeding. EXTREMITIES: No cyanosis, non-tender, without signs of DVT. +2 edema worse on right where injury had occured Medications and IVs Current Medications Medications (Trade) Dose Ordered Sig/Dominik Route Start Time Stop Time Status Last Admin (NS Flush) 2 ml BID IV FLUSH 08/06/17 09:00 (NS Flush) 2 ml UNSCH PRN IV FLUSH 08/05/17 22:15 (Tylenol) 650 mg Q4H PRN PO 08/05/17 22:15 08/05/17 20:52 (Motrin) 800 mg Q8H PRN PO 08/05/17 22:15 08/07/17 05:14 (Percocet 5-325 Mg) 1 tab Q4H PRN PO 08/05/17 22:15 08/07/17 05:15 (Percocet 5-325 Mg) 2 tab Q4H PRN PO 08/05/17 22:15 (Americaine 20% Top Spr) 1 spray Q4H PRN TOPICAL 08/05/17 22:15 08/05/17 23:38 (Tucks Pads) 1 applic QID PRN TOPICAL 08/05/17 22:15 08/05/17 23:38 (Mary-Colace) 2 tab Q12H PRN PO 08/05/17 22:15 08/07/17 05:14 (Ambien) 5 mg HS PRN PO 08/05/17 22:15 (Mag-Al Plus Susp Liq) 15 ml Q8H PRN PO 08/05/17 22:15 (Zofran Odt) 4 mg Q6H PRN PO 08/05/17 22:15 Assessment/Plan Problem List: (1) 40 weeks gestation of ICD Codes: Z3A.40 - 40 weeks gestation of (2) Spontaneous vaginal delivery ICD Codes: O80 - Encounter for full-term uncomplicated delivery Discharge Planning dc today Luis Angel Eden MD August 07, 2017 07:44
[2017-08-07] MEDS ORDERED: DIPHTH/TETANUS/ACEL PERTUSSIS (BOOSTER) 0.5 ML VIAL/PFS IM ONE (07:45)
[2017-08-07] MEDS ORDERED: OXYC1TAB63 PO (07:45)
--- NOTE | 2017-08-07 07:47 | HHI.DS ---
Admission Date August 05, 2017 at 08:03 Discharge Date: August 07, 2017 Admitting Diagnosis Diagnosis: (1) Spontaneous vaginal delivery Diagnosis: Principal ICD Codes: O80 - Encounter for full-term uncomplicated delivery Delivery Date: August 05, 2017 Vaginal Delivery: Normal, Spontaneous : Female, Single Brief History 31 yo here for induction at 40 weeks. she will have pitocin then AROM Hospital Course ppd # 2 doing well ready for DC home Pt Condition on Discharge: Good Discharge Disposition: Discharge Home Discharge Instructions Diet Instructions: As Tolerated, No Restrictions Activities You Can Perform: Regular-No Restrictions Activities to Avoid: Driving for 24 hrs Follow up Referrals: AFTERSCHOOL - 2 Weeks @ [facility] with Luis Angel Eden MD New Medications: Oxycodone HCl/Acetaminophen (Oxycodone-Acetaminophen 5-325) 5 Mg-325 Mg Tablet 1 TAB PO Q4H PRN for PAIN SCALE 3 TO 5, #20 TAB Discontinued Medications: Fluconazole (Diflucan) 200 Mg Tab 200 MG PO DAILY for Infection, #2 TAB 0 Refills Vit-Iron Carbonyl ( Plus Iron 29-1 mg) 29 Mg Iron-1 Mg Tab 1 TAB PO DAILY for Nutritional Supplement, #30 TAB 0 Refills Luis Angel Eden MD August 07, 2017 07:47
== END 2017-08-07 14:10 | disposition home or self-care (01) | DRG 775 ==
LOC: H2EB 08:03 → H1EA 08-06 00:44
PROVIDERS: ADMIT Obstetrics & Gynecology; ATTEND Obstetrics & Gynecology
PROC: 10E0XZZ Delivery of Products of Conception, External Approach (ICD-10-PCS; principal; 2017-08-05)
PROC: 0KQM0ZZ Repair Perineum Muscle, Open Approach (ICD-10-PCS; 2017-08-05)
PROC: 3E033VJ Introduction of Other Hormone into Peripheral Vein, Percutaneous Approach (ICD-10-PCS; 2017-08-05)
PROC: 10907ZC Drainage of Amniotic Fluid, Therapeutic from Products of Conception, Via Natural or Artificial Opening (ICD-10-PCS; 2017-08-05)
PROC: 3E0R3BZ Introduction of Anesthetic Agent into Spinal Canal, Percutaneous Approach (ICD-10-PCS; 2017-08-05)
PROC: 00HU33Z Insertion of Infusion Device into Spinal Canal, Percutaneous Approach (ICD-10-PCS; 2017-08-05)
DX: O75.89 Other specified complications of labor and delivery (principal); O70.1 Second degree perineal laceration during delivery; Z37.0 Single live birth; Z3A.40 40 weeks gestation of pregnancy
CPT/HCPCS: 59025; 80307; 81001; 85025; 86900; 86901; 90715; J2405; J2590